=== PATIENT | female | born 1940 | race Caucasian/White ===

== ENCOUNTER → 2016-08-31 | Outpatient (CLI) | payer OTHER | LOC: FIMAGING 09:41 | DX: Z12.31 Encounter for screening mammogram for malignant neoplasm of breast (principal) | CPT/HCPCS: G0202 ==

== ENCOUNTER → 2016-12-19 | Outpatient (CLI) | payer OTHER | LOC: FLAB 15:52 | PROVIDERS: ATTEND Internal Medicine | DX: M11.261 Other chondrocalcinosis, right knee (principal) | CPT/HCPCS: G0463-PO ==

== ENCOUNTER → 2017-01-03 | Outpatient (CLI) | payer OTHER | LOC: FIMAGING 09:33 → EDSTATUS 09:45 | PROVIDERS: ATTEND Internal Medicine Endocrinology, Diabetes & Metabolism | DX: M81.0 Age-related osteoporosis without current pathological fracture (principal) ==

== ENCOUNTER → 2017-10-24 | Outpatient (CLI) | payer OTHER | LOC: FIMAGING 10:53 | PROVIDERS: ATTEND Internal Medicine | DX: Z12.31 Encounter for screening mammogram for malignant neoplasm of breast (principal) ==

== ENCOUNTER 2018-07-02 08:02 | Inpatient (IN) | payer OTHER ==
--- NOTE | 2018-07-02 06:19 | PDHPUP ---
History & Physical Update H&P update statement: This history and physical update is based on an assessment of the patient which was completed after admission or registration (within 24 hours), but prior to the surgery/procedure. H&P update: H&P reviewed & patient examined, no change in patient's condition since H&P completed
[~2018-07-02 08:02] MED LIST: ROPIVACAINE 0.2% 80 MG, EPINEPHrine 0.2 MG, KETOROLAC TROMETHAMINE 30 MG in SYRINGE 0 ML IU ONE; TRANEXAMIC ACID 3,000 MG in NS (SYRINGE) 50 ML IRR ONE; TRANEXAMIC ACID 3,000 MG/50 ML BAG IRR ONE
--- NOTE | 2018-07-02 08:12 | PDANEPAE ---
ANE History of Present Illness right hip pain ANE Past Medical History - Cardiovascular History Hx Hypertension: No Hx Arrhythmias: Yes Hx Chest Pain: No Hx Coronary Artery / Peripheral Vascular Disease: No Hx CHF / Valvular Disease: No Hx Palpitations: No Cardiovascular History Comment: IRREGULAR HB - Pulmonary History Hx COPD: No Hx Asthma/Reactive Airway Disease: No Hx Recent Upper Respiratory Infection: No Hx Oxygen in Use at Home: No Hx Sleep Apnea: No Sleep Apnea Screening Result - Last Documented: Negative - Neurologic History Hx Cerebrovascular Accident: No Hx Seizures: No Hx Dementia: No - Endocrine History Hx Diabetes: No Hypothyroid: Yes Hyperthyroid: No Obesity: no - Renal History Hx Renal Disorders: No - Liver History Hx Hepatic Disorders: No - Neurological & Psychiatric Hx Hx Neurological and Psychiatric Disorders: No - Cancer History Hx Cancer: No - Congenital Disorder History Hx Congenital Disorders: No - GI History GERD: no Hx Gastrointestinal Disorders: No - Other Health History Other Health History: DAIRY INTOLERANCE. POOR HEARING - Chronic Pain History Chronic Pain: No - Surgical History Prior Surgeries: L FX WRIST REPAIR ANE Review of Systems Review of systems is: negative Review of Systems: - Exercise capacity Exercise capacity: >=4 METS METS (RN): 4 METS ANE Patient History - Allergies Allergies/Adverse Reactions: balderas Allergy (Verified 06/25/18 10:45) Other-Enter Comments lactose Allergy (Verified 06/25/18 10:45) Other-Enter Comments orange juice Allergy (Verified 06/25/18 10:45) Other-Enter Comments - Home Medications Home medications: home medication list seen and reviewed Home Medications: Bisoprolol Fumarate [Zebeta (*)] 5 mg PO DAILY 01/03/17 [Last Taken 07/02/18 06: 30] Levothyroxine [Synthroid 75 mcg (*)] 75 mcg PO DAILY06 01/03/17 [Last Taken 06:30] clonazePAM [Klonopin (*)] 0.5 mg PO HS PRN 01/03/17 [Last Taken 1 Day Ago ~07/01] Acetamn/Diphenhydramine 500/25 [Tylenol PM (*)] 1 each PO HS 06/18/18 [Last Taken 1 Day Ago ~07/01/18] Herbals/Supplements -Info Only 1 ea PO DAILY 06/18/18 [Last Taken 06/25/18] - NPO status NPO Status: no food or drink >8 hours - Anes Hx Anes Hx: no prior problems - Smoking Hx Smoking Status: Former smoker - Family Anes Hx Family Anes Hx: none Family Hx Anesthesia Complications: NONE ANE Labs/Vital Signs - Vital Signs Height: 172.72 cm Weight: 54.431 kg ANE Physical Exam - Airway Neck exam: FROM Mallampati Score: Class 1 - Pulmonary Pulmonary: no respiratory distress - Cardiovascular Cardiovascular: regular rate and rhythym - ASA Status ASA Status: II ANE Anesthesia Plan Anesthesia Plan: spinal
[2018-07-02] MEDS ORDERED: MIDAZOLAM 2 MG/2 ML VIAL IVP ONE (08:14)
[2018-07-02] MEDS ORDERED: PROPOFOL/EMULSION 500 MG/50 ML BOTTLE IV ONE (08:35)
[2018-07-02] MEDS ORDERED: ceFAZolin 2 GM/DEXTROSE 100 ML IV ONE (08:36)
[2018-07-02] MEDS ORDERED: ACETAMINOPHEN 325 MG TAB PO ONE (08:36)
[2018-07-02] MEDS ORDERED: FAMOTIDINE 20 MG TAB PO ONE (08:36)
[2018-07-02] MEDS ORDERED: DEXAMETHASONE 4 MG/ML VIAL IVP ONE (08:36)
[2018-07-02] MEDS ORDERED: LR 1,000 ML IV ONE (08:36)
[2018-07-02] MEDS ORDERED: BUPIVACAINE/DEXTROSE 7.5MG/ML 2 ML SPINAL AMP SP ONE (09:35)
[2018-07-02] MEDS ORDERED: DIAZEPAM 5 MG/ML 1 ML SYR IVP PRN (10:19)
[2018-07-02] MEDS ORDERED: ONDANSETRON 4 MG/2 ML VIAL IVP PRN ×2 (10:19→11:23)
[2018-07-02] MEDS ORDERED: ALBUTEROL 3 ML DEYVIAL IH PRN (10:19)
[2018-07-02] MEDS ORDERED: LR 500 ML IV PRN (10:19)
[2018-07-02] MEDS ORDERED: DEXAMETHASONE 4 MG/ML VIAL IVP PRN (10:19)
[2018-07-02] MEDS ORDERED: HYDROmorphONE/DILAUDID 2 MG/ML INJ IVP PRN (10:19)
[2018-07-02] MEDS ORDERED: oxyCODONE IR 5 MG TAB PO PRN (10:19)
[2018-07-02] MEDS ORDERED: PROMETHAZINE HCL 25 MG/ML INJ IVP PRN ×2 (10:19→11:23)
[2018-07-02] MEDS ORDERED: ACETAMINOPHEN 500 MG TAB PO PRN (10:19)
[2018-07-02] MEDS ORDERED: MEPERIDINE 25 MG/0.5 ML AMP IVP PRN (10:19)
[2018-07-02] MEDS ORDERED: METOCLOPRAMIDE 10 MG/2 ML VIAL IVP PRN ×2 (10:19→11:23)
[2018-07-02] MEDS ORDERED: PHENYLEPHRINE HCL 100 MCG/ML SYR IVP PRN (10:19)
[2018-07-02] MEDS ORDERED: LABETALOL HCL 5 MG/ML 20 ML MDV IVP PRN (10:19)
[2018-07-02] MEDS ORDERED: NALOXONE HCL 0.4 MG/ML INJ IVP PRN (10:19)
[2018-07-02] MEDS ORDERED: diphenhydrAMINE 25 MG CAP PO PRN (11:23)
[2018-07-02] MEDS ORDERED: DIPHENOXYLATE/ATROPINE LOMOTIL 1 TAB PO PRN (11:23)
[2018-07-02] MEDS ORDERED: PROMETHAZINE HCL 25 MG SUPPR PR PRN (11:23)
[2018-07-02] MEDS ORDERED: LACTULOSE 20 GM/30 ML UDCUP PO PRN (11:23)
[2018-07-02] MEDS ORDERED: POLYETHYLENE GLYCOL 3350 17 GM PKT PO PRN (11:23)
[2018-07-02] MEDS ORDERED: ONDANSETRON DISINTEGRATING 4 MG TAB PO PRN (11:23)
[2018-07-02] MEDS ORDERED: CYCLOBENZAPRINE 10 MG TAB PO PRN (11:23)
[2018-07-02] MEDS ORDERED: BISACODYL 10 MG SUPP PR PRN (11:23)
[2018-07-02] MEDS ORDERED: TEMAZEPAM 15 MG CAP PO PRN (11:23)
[2018-07-02] MEDS ORDERED: MAGNESIUM HYDROXIDE 30 ML UDCUP PO PRN (11:23)
--- NOTE | 2018-07-02 11:23 | POSTOPPROG ---
Post Op Note Date of Operation: 07/02/18 Surgeon: Agatha Poon [employer] Equipment Mechanic: markus poon PA-C Anesthesiologist: dr. natarajan Anesthesia: Spinal Pre-op Diagnosis: left hip OA Post-op Diagnosis: same Indication: left hip pain Procedure: L ELIEL ant approach Findings: severe hip OA Inf/Abcess present in the surg proc area at time of surgery?: No EBL: 100-500
[2018-07-02] MEDS ORDERED: clonazePAM 0.5 MG TAB PO PRN (11:24)
[2018-07-02] MEDS ORDERED: fentaNYL 100 MCG/2 ML INJ ONE (11:38)
[2018-07-02] MEDS ORDERED: HYDROmorphONE/DILAUDID 2 MG/ML INJ ONE (11:38)
[2018-07-02] MEDS ORDERED: ACETAMINOPHEN 325 MG TAB ONE (11:39)
[2018-07-02] MEDS: fentaNYL 100 MCG/2 ML INJ IVP PRN ×2 (11:41→11:46)
[2018-07-02] MEDS: ACETAMINOPHEN 325 MG TAB PO SCH ×2 (11:57→17:03)
--- NOTE | 2018-07-02 12:14 | PDMN ---
Medical Necessity Medical necessity: [facility] S560 Hip Arthroplasty: 78 yo s/p L ELIEL, [facility] IP only
[2018-07-02] MEDS: LR 1,000 ML IV SCH ×2 (12:38→22:16)
--- NOTE | 2018-07-02 13:07 | POSTANESTH ---
Post Anesthetic Evaluation Cardiovascular Status: Normal, Stable Respiratory Status: Normal, Stable Level of Consciousness/Mental Status: Can Participate in Eval Pain Control: Adequate, Prn Tx Ordered Nausea/Vomiting Control: Adequate, Prn Tx Ordered Complications Possibly Related to Anesthesia: None Noted
[2018-07-02] MEDS: oxyCODONE IR 5 MG TAB PO PRN ×2 (13:49→22:16)
[2018-07-02] MEDS: ceFAZolin 2 GM/DEXTROSE 100 ML IV SCH (17:05)
[2018-07-02] MEDS: ASPIRIN 81 MG CHEWABLE TAB PO SCH (20:06)
[2018-07-02] MEDS: FAMOTIDINE 20 MG TAB PO SCH (20:06)
[2018-07-02] MEDS: SENNOSIDES/DOCUSATE SODIUM TAB PO SCH (20:07)
[2018-07-03] MEDS: ACETAMINOPHEN 325 MG TAB PO SCH ×2 (00:37→04:55)
[2018-07-03] MEDS: ceFAZolin 2 GM/DEXTROSE 100 ML IV SCH (02:29)
[2018-07-03] MEDS ORDERED: LEVOTHYROXINE 75 MCG TAB PO SCH (06:00)
[2018-07-03] MEDS ORDERED: BISOPROLOL FUMARATE 5 MG TAB PO SCH (09:00)
[2018-07-03] MEDS: SENNOSIDES/DOCUSATE SODIUM TAB PO SCH (09:15)
[2018-07-03] MEDS: oxyCODONE IR 5 MG TAB PO PRN (09:15)
[2018-07-03] MEDS: ASPIRIN 81 MG CHEWABLE TAB PO SCH (09:15)
[2018-07-03] MEDS: FAMOTIDINE 20 MG TAB PO SCH (09:15)
--- NOTE | 2018-07-03 10:34 | ASDISCHSUM ---
Discharge Information Plan Status:Home with No Needs Medically Cleared to Leave: Discharge Date: CM D/C Disposition:Home, Routine, Self-Care ADT D/C Disposition:Home, Routine, Self-Care Projected Discharge Date: Transportation at D/C: Discharge Delay Reason: Follow-Up Date: Discharge Slot: Final Diagnosis: Placement Information Patient Contact Information Contact Name:TOMMY Relationship: Address:[address] [place] [address] City:[place] Alternate Phone: State/Zip Code:[place] [address] Email: Financial Information Financial Class:Medicare Primary Plan Desc:MEDICARE INPATIENT Primary Plan Number:[id number] Secondary Plan Desc:JEREMY Secondary Plan Number:[id number] Assessment Information LACE LACE Length of stay for Answers: 1 day current admission Acuity / Level of Answers: Yes Care: Did the patient have an inpatient admission? Comorbidities - select Answers: Other Notes: Hypothyroid all that apply # of Emergency department Answers: 0 visits in the last 6 months Score: 5 Date Signed: 07/03/2018 10:33 AM Electronically Signed By:LORI Longoria Intervention Information
[2018-07-03 11:26] VITALS: BP 107/49
--- NOTE | 2018-07-03 13:19 | SOAPPROG ---
SOAP Progress Note Assessment/Plan: Assessment: Patient is doing well POD 1 s/p R ELIEL Pain management: pain is well controlled on oral pain meds. VTE ppx: recommend aspirin 81 mg BID for 4 weeks, cont FAMILIA and SCDs Anemia: level is expected initially postop. Asymptomatic. Continue to monitor D/c planning: Patient has done better than anticipated and would like to be discharged to home today. Patient must be released from PT before discharge to home. hyponatremia: 127L, recommend fluid restriction of 1L/ day for a few days. encourage sodium rich fluids. Plan: 07/03/18 13:17 Subjective: patient is doing well ,denies SOB, chest pain and N/V Objective: Vital Signs Temp Pulse Resp BP Pulse Ox 36.6 C 65 14 107/49 L 97 07/03/18 11:26 07/03/18 11:26 07/03/18 11:26 07/03/18 11:26 07/03/18 11:26 Laboratory Results 07/03/18 04:31 07/03/18 04:31 07/02/18 07/03/18 07/04/18 05:59 05:59 05:59 Intake Total 4190 Output Total 600 Balance 3590 RLE: incision dressing is clean and dry, NVI, +pf/df ICD10 Worksheet Patient Problems: Problems Problem Status Onset Primary localized osteoarthritis of right hip Acute
--- NOTE | 2018-07-06 20:44 | GOP ---
DATE OF OPERATION: 07/02/2018 SURGEON: Neto Burns MD FAMILY PRACTICE PHYSICIAN ASSISTANT: ALICE Thorne ANESTHESIA: Spinal. PREOPERATIVE DIAGNOSIS: Right hip osteoarthritis. POSTOPERATIVE DIAGNOSIS: Right hip osteoarthritis. PROCEDURE PERFORMED: Right total hip arthroplasty with x-ray. FINDINGS: ESTIMATED BLOOD LOSS: 20 cc. INDICATIONS: The patient has progressively worsening arthritis of the hip which has failed medical m anagement. The patient understands the treatment options including continued non-operative care and has selected surgical intervention. The patient has decided to undergo total hip arthroplasty via th e direct anterior approach, understanding the risks of the procedure including, but not limited to, n eurovascular injury, infection, persistent pain, component wear and loosening, deep venous thrombosis , pulmonary embolism, limb length inequality, hip instability (including dislocation), and intra-oper ative fractures. DESCRIPTION OF PROCEDURE: After proper identification of the patient including verification and hollie ing the surgical site, the patient was brought to the operating room and placed in the supine positio n. All bony prominences were well padded. Anesthesia was induced without complication and intraveno us prophylactic antibiotics were administered prior to skin incision. The operative leg was placed in the Trumpf Arch table extension and the well leg in a Yellofin leg ho lder. The patient was prepped and draped in the usual sterile fashion. The C-arm was draped for int ra-operative fluoroscopy to check acetabular position, femoral component position including leg lengt h and femoral offset. Attention was then drawn to surgical exposure of the hip. An incision was made with a #10 Bard Whitley r blade starting 3 cm lateral and 3 cm distal to the anterior superior iliac spine measuring 8-10 cm and coursing distally toward the greater trochanter. The skin and subcutaneous tissues were divided sharply down to the fascia filiberto. The fascia filiberot was incised in line with the skin incision exposing the underlying tensor fascia filiberto muscle. The muscle was bluntly elevated from the fascia and the f irst extracapsular Cobra retractor was placed laterally at the junction of the superior femoral neck and greater trochanter. The lateral femoral circumflex vessels were identified, cauterized, and divi ded with the Aquamantys bipolar cautery. The deep investing fascia of the TFL was divided to allow p sheri mobilization of the muscle preventing damage during the retraction. The reflected head of the rectus femoris muscle was elevated off the anterior hip capsule and a medial Cobra retractor was plac ed just proximal to the lesser trochanter. The anterior capsulotomy was made sharply from the superolateral acetabulum to the saddle junction of the superior femoral neck and greater trochanter, then coursing inferomedial towards the lesser troc hanter. The retractors were then placed in the intracapsular position for femoral neck osteotomy. C orresponding to pre-operative templating, the osteotomy was made with the oscillating saw carefully p rotecting the greater trochanter and soft tissues. The femoral head was removed from the acetabulum with a corkscrew and confirmed to be severely arthritic with exposed bone, deformity and osteophytes. Similar findings were confirmed in the acetabulum. The Arch table extension was then placed in 40 degrees external rotation. Attention was then drawn to the acetabular preparation. After placement of the anterior and posterio r Cobra retractors outside the labrum and intracapsular, the circumferential labrum was removed sharp ly. The foveal contents were then removed and hemostasis obtained with cautery. The first reamer selected was sized using the removed femoral head. Reaming began with medialization and then commenced in 2 mm increments at 45 degrees of abduction and 15 degrees of anteversion using fluoroscopic navigation. Reaming ceased 1 mm less than the definitive acetabular component and karlo esponded to the pre-operative templating. The final acetabular component was inserted using fluorosc opy to achieve proper orientation yielding excellent purchase and stability in the acetabulum. The f inal acetabular liner was then placed and its seating confirmed. Attention was then turned to the femur. The Arch table extension was placed in extension and adducti on, delivering the osteotomized femoral neck into the wound. A 2-pronged femoral elevator was placed at the calcar and another at the tip of the greater trochanter. The posterolateral capsule was rele ased with cautery allowing mobilization of the femur lateral and anterior for preparation. The exter nal rotators were visualized and preserved. A curette and rongeur were used to open the starting poi nt for broaching. Serial broaching started with the #0 broach and ended with the broach that exhibit ed excellent fit in the proximal femur. A change in pitch during mallet strikes was accompanied by t he inability to advance the broach any further. The trial reduction was performed and fluoroscopic n avigation was utilized to check limb length. Adjustments were made to equalize limb length according ly. After the final trials were accepted they were removed and the wound was copiously lavaged. The femo ral component was seated to the same depth as the final broach and the femoral head was impacted onto the clean trunnion. The hip was then reduced for the final time and once more fluoroscopy was used to check that limb length equality was achieved. The wound was irrigated and closed in layers, the fascia filiberto with 2-0 Quill, the subcutaneous tissue with 2-0 Quill, and the skin with Dermabond. Sterile dressings were applied. Final sharps and spon ge counts were accurate. The patient was then transferred to a hospital bed and brought to the [facility] room in stable condition. IMPLANTS: Accolade II size 5 at 132 acetabular component, Trident II 52 mm, liner is an X3 36 mm, he ad is a Biolox delta 35 mm +0. /[id number]/MODL
== END 2018-07-03 13:27 | disposition home or self-care (01) | DRG 470 ==
LOC: F3N 08:02
PROVIDERS: ADMIT Orthopaedic Surgery; ATTEND Orthopaedic Surgery
PROC: 0SR904Z Replacement of Right Hip Joint with Ceramic on Polyethylene Synthetic Substitute, Open Approach (ICD-10-PCS; principal; 2018-07-02 10:00)
DX: M16.11 Unilateral primary osteoarthritis, right hip (principal); R00.8 Other abnormalities of heart beat
CPT/HCPCS: 97161-GP; G8978-GP-CI; G8979-GP-CI; G8980-GP-CI; J0171; J0690; J1100; J1170; J1885; J2250; J2704; J2795; J3010

== ENCOUNTER → 2018-12-11 | Outpatient (CLI) | payer OTHER | LOC: FIMAGING 13:23 ==